=== PATIENT | female | born 1960 | race Caucasian/White ===

== ENCOUNTER 2017-12-23 10:19 | Inpatient (IN) ==
--- NOTE | 2017-12-23 10:31 | History & Physical Report ---
Date of Encounter: 12/23/17 Time of Encounter: 10:31 24 Hour HP Update - Instructions Instructions: If the History and Physical is less than 30 days old and was completed prior to A.M. admission and or procedure and has NOT been updated on calendar day of procedure please complete this update prior to performing procedure. - Update Patient reports changes in Medical Condition: No Changes in examination, assessment, or condition: No Changes in Medication: No Preop tests/diagnostics Reviewed: Yes Surgery Remains Indicated: Yes Consent for Planned Operative Procedure(s) Verified: Yes - Pre-Operative Checklist Preoperative Checklist Indicated: No Prophylactic Antibiotic Ordered: Yes Is VTE Prophylaxis Indicated?: Yes
[2017-12-23] MEDS ORDERED: Albuterol 2.5 MG/3 ML NEBULIZER IH ONE (10:36)
[2017-12-23] MEDS ORDERED: Ringers Solution, Lactated 1,000 ML IVC SCH ×2 (10:45→13:39)
[2017-12-23] MEDS ORDERED: *HR* Ropivacaine/PF 0.5% 20 ML VIAL ONE (10:55)
[2017-12-23] MEDS ORDERED: Acetaminophen IV 1,000 MG/100 ML INFUS..BTL IVPB ONE (10:57)
[2017-12-23] MEDS ORDERED: Clindamycin 900 MG/50 ML 900 MG/50 ML IV.SOLN IVPB ONE (10:59)
[2017-12-23] MEDS ORDERED: *HR* Midazolam HCl 2 MG/2 ML VIAL ONE (10:59)
[2017-12-23] MEDS ORDERED: Dexamethasone 4 MG/ML VIAL ONE (10:59)
[2017-12-23] MEDS ORDERED: *HR* Propofol 200 MG/20 ML VIAL IVP ONE (10:59)
[2017-12-23] MEDS ORDERED: *HR* Succinylcholine 200 MG/10 ML VIAL IVP ONE (10:59)
[2017-12-23] MEDS ORDERED: *HR* FentaNYL (PF) 100 MCG/2 ML VIAL ONE (10:59)
[2017-12-23] MEDS ORDERED: Lidocaine -MPF 4% 5 ML AMPUL ONE (10:59)
--- NOTE | 2017-12-23 11:00 | Anesthesia Evaluation PreOp ---
Date of Encounter: 12/23/17 Time of Encounter: 10:58 - Past History Planned Operation: R TSR reverse Cardiac History: Arrhythmia (paroxysmal afib, now in sinus) Pulmonary History: Smoker (smoked today), COPD EQUAL OPPORTUNITY COUNSELOR History: Denies Any Significant HX Other Medical History: Denies Any Significant HX Anesthesia History: No Prior Anesthetic Complications, Past Anesthesia (R wrist) Alcohol Use: none Drug use: none Medications and Allergies 3 Allergy/AdvReac Type Severity Reaction Status Date / Time Penicillins Allergy See Verified 12/16/17 11:32 Comments - Meds/Allergy Pre-op Review Medications Reviewed: Yes Allergies Reviewed: Yes Beta Blockers on Current Med List: No Anesthesia Results - Labs Laboratory Tests 12/16/17 12/16/17 12/16/17 11:42 11:42 11:42 WBC 8.4 Hgb 14.3 Hct 44.3 Plt Count 300 PT 11.3 INR 1.1 APTT 32.7 Sodium 136 Potassium 4.4 Chloride 108 H Carbon Dioxide 24 BUN 17 Creatinine 0.63 - Imaging EKG: report reviewed Anesthesia Exam O2 Sat Height 1.52 m Height 1.52 m Height 1.52 m Weight 51.256 kg Weight 51.256 kg Weight 51.256 kg O2 Sat by Pulse Oximetry 94 Vital Signs Temp Pulse Resp BP Pulse Ox 98.0 F 75 18 110/74 94 12/23/17 10:40 12/23/17 10:40 12/23/17 10:40 12/23/17 10:40 12/23/17 10:40 Height: 1.52m Weight: 51kg NPO (# of Hours): >8 - HEENT Pupil (Motor): Pupils equal, EOMI Mallampati: II (prominent incisors) Teeth: Poor dentition Oral Opening: Greater than 3 - EQUAL OPPORTUNITY COUNSELOR LOC: Oriented EQUAL OPPORTUNITY COUNSELOR Motor: Normal RUE, Normal LUE, Normal RLE, Normal LLE, Normal Face EQUAL OPPORTUNITY COUNSELOR Sensory: Normal: RUE, LUE, RLE, LLE, Face - Cardiac Rhythm: Regular - Pulmonary Breath Sounds: bilateral Clear Respiratory Effort: Symmetrical Anesthesia Assess/Plan ASA Score: 3 Modified [place] Scale for Level of Consciousness: Cooperative, oriented, and tranquil Anesthetic Plan: General, Regional (R supraclavicular nn block) Monitoring Plan: Standard Monitors Recovery Plan: PACU
--- NOTE | 2017-12-23 11:35 | Discharge Summary ---
Date of Encounter: 12/24/17 Time of Encounter: 07:48 - Discharge Diagnosis (1) Paroxysmal atrial fibrillation Priority: Secondary Status: Chronic (2) COPD (chronic obstructive pulmonary disease) Priority: Secondary Status: Chronic Qualifiers: COPD type: unspecified COPD Qualified Code(s): J44.9 - Chronic obstructive pulmonary disease, unspecified (3) Tobacco dependence Priority: Secondary Status: Chronic (4) Rotator cuff tear arthropathy of right shoulder Priority: Primary Status: Chronic (5) Status post reverse total arthroplasty of right shoulder Priority: Primary Status: Acute - Discharge Medications Home Medications: ALPRAZolam [Xanax 0.5 MG Tablet] 0.5 mg PO TID PRN 12/23/17 [History] Albuterol Sulfate [Albuterol Inhaler] 2 puff IH Q4-6H PRN 12/23/17 [History] Aspirin [Lo-Dose Aspirin EC] 81 mg PO DAILY 12/23/17 [History] Flecainide 100 - 200 mg PO DAILY PRN 12/23/17 [History] Guaifenesin [Mucus Relief] 400 mg PO Q4H PRN 12/23/17 [History] Ibuprofen [Motrin] 600 mg PO BID PRN 12/23/17 [History] OxyCODONE Immed Rel [Roxicodone 5 MG] 5 mg PO Q4HR PRN 5 Days #20 tablet [Rx] PARoxetine HCl [Paroxetine HCl] 20 mg PO DAILY 12/23/17 [History] Tiotropium [Spiriva] 18 mcg IH DAILY 12/23/17 [History] dilTIAZem HCl [Diltiazem 24Hr Cd] 120 mg PO DAILY 12/23/17 [History] Allergies/Adverse Reactions: 3 Allergy/AdvReac Type Severity Reaction Status Date / Time Penicillins AdvReac See Verified 12/23/17 11:09 Comments Primary care physician: Jb Rios MD - Patient Status Disposition: Home, Self-Care Condition: Good Functional capacity at discharge: independent ambulation Overall status at discharge: patient is progressing back to baseline - Discharge Instructions Follow Up With: Jb Rios MD [Primary Care Provider] - Additional Instructions: Discharge Instructions: Total Shoulder Please call [facility] ([phone]), your Primary Care Physician, or report to the Emergency Room if you have any of the following symptoms: Nausea, vomiting, fever greater that 101.5, swelling, chest pain, shortness of breath, increased pain/redness/drainage/odor for your incision site, numbness/ tingling, or any other concerning symptoms. ACTIVITY: Always keep your arm in the sling. Do not raise your arm away from your body. Do not use your arm to help with getting in or out of bed. No weight bearing permitted. Only perform those exercises given to you by your therapist. MEDICATIONS: Upon discharge resume your home medications. Take all the medications as prescribed. Take a stool softener if taking narcotic pain medications. Stool softeners are only effective if you drink enough fluids. Drink 6-8 glass of water or fluids a day, unless this is not allowed for another health problem. Despite using stool softeners, if you haven't had a bowel movement in 3 days, please switch to a gentle laxative. Gentle laxatives are sold over the counter. You should have a bowel movement within 24 hours, if not call the office. You will be discharged from the hospital with a prescription for pain medication. You are encouraged to decrease the use of narcotic pain medication as tolerated. Should you require a refill, please call the office. [facility] prescribes narcotic pain medication for only 4-6 weeks after surgery. If you require pain medication beyond this time period, you may be referred to your Primary Care Physician or to the Pain Clinic for further evaluation. Plan ahead for refills on pain medication as many narcotics either need to be picked up at the office or mailed. It is best to call 48-72 hours in advance of needing a prescription refill so you don't run out of medication. To help control the post-operative pain, you may take NSAIDs (Aleve,Advil, Motrin, Ibuprofen, Naprosyn) or Tylenol as prescribed on the bottle in addition to the pain medication. WOUND CARE: Leave the dressing on for 7-10 days. You may change the dressing if it becomes saturated greater than 50%. Do not get the dressing wet at anytime. Wash your hands with antibacterial soap, rinse and dry prior to any wound care. If you have slava the visiting nurse or rehab facility can remove the stapes 10-14 days after surgery and place steri-strips across the wound. Leave the steri-strips in place until they fall off on their own. You may let water from the shower run on top of the steri-strips. If you do not have a visiting nurse or rehab facility, you will need to return to the office at 10-14 days for the slava to be removed. If you have itching or redness around the dressing call the office. FOLLOW-UP: Please follow up with your surgeon in the orthopedic clinic, as scheduled - Hospital Course Hospital course: Ms. Arthur is a 57 year old female Status post right total shoulder replacement discharged home same day - Time Spent with Patient Total time spent providing and/or coordinating discharge services:
[2017-12-23] MEDS ORDERED: *HR* PHENYLEPHRINE 1,000 MCG/10 ML SYRINGE IVP ONE (11:53)
[2017-12-23] MEDS ORDERED: *HR* OxyCODONE Immed Rel 5 MG TABLET PO PRN ×3 (12:31→13:39)
[2017-12-23] MEDS ORDERED: Ondansetron 4 MG/2 ML VIAL IVP PRN ×2 (12:31→13:39)
--- NOTE | 2017-12-23 12:58 | Orthopedic Operative Note ---
Date of procedure: 12/23/17 Pre-op diagnosis: Right shoulder cuff tear arthropathy Post-op diagnosis: same Procedure: Procedure: Total Shoulder Replacment Reverse, right Estimated blood loss: 100 cc Hardware: Metal and polyethylene replacement: Arthrex small glenoid baseplate, 2 4.5 screws. 1 6.5 screw, 36 central glenosphere, 5 humeral stem, poly insert 3 Exam Under anesthesia: Full motion and no stability Procedural Notes: Irreparable tear supra infra and subscap Operative procedure: The patient was brought to the operating room and placed on the operating room table. After general anesthesia was administered the operative shoulder was examined. Findings were noted. The patient was placed in the modified beachchair position. All pressure points were padded appropriately. And the head was stabilized in the neutral position. The operative extremity was prepped and draped in the sterile surgical fashion. The patient received IV antibiotics prior to skin incision. A standard deltopectoral approach was made to the operative shoulder. Incision was made to the skin and subcutaneous tissue,hemo stasis was obtained with Bovie cautery. Using careful blunt dissection the cephalic vein was identified and mobilized medially. The deltopectoral interval was developed and the clavipectoral fascia was incised. Patient noted to have irreparable tear of subscap. The humerus was dislocated patient noted to have irreparable tear supraspinatus tendon and infraspinatus, and the humeral cut was made along the anatomic neck. Anterior and posterior Bankart retractors were placed to expose the glenoid. The glenoid guide was seated and the centering hole was made. It was reamed with the appropriate reamer. The small baseplate was seated and secured with (2) 4.5 screws and one 6.5 screw. The baseplate was irrigated and dried and the 36 central Glenosphere was seated and secured with the Stephens taper. The Stephens taper was tested and found to be secure the humerus was redislocated and prepared with the diaphyseal reamers, followed by a broaching process up to the appropriate size 5 in the patient's anatomic version. The metaphyseal reamer was then utilized. Trial reduction found the shoulder to be relocatable. Trial components were removed The appropriate 5 stem was impacted in place in the patient's anatomic version. Trial reduction found the shoulder to be relocatable and stable with the appropriate 3. Trial component was removed and the real 3 poly was seated and secured the shoulder was reduced. The shoulder had excellent motion and excellent stability and no evidence of dislocation. The deep tissue was irrigated with pulse irrigation. The deltopectoral interval was closed with a running #1 PDS suture, subcutaneous tissue was irrigated and closed with 0 PDS suture, the skin was closed with Dermabond. The patient was placed in a sterile dressing, abduction brace and extubated. The patient was then transferred to the recovery room in stable condition. Anesthesia: GETA Surgeon: Lorenzo Jose Was there an surgeon's assistant present: No Estimated blood loss (cc): 100 Condition: stable Disposition: PACU
--- NOTE | 2017-12-23 13:10 | Anesthesia Evaluation Post Op ---
Date of Encounter: 12/23/17 Time of Encounter: 13:12 - Vital Signs Vital Signs: Vital Signs - Last 8 Hours Temp Pulse Resp BP Pulse Ox 12/23/17 13:03 70 16 106/67 97 12/23/17 12:53 74 16 123/65 97 12/23/17 12:43 97.0 F L 72 14 132/62 97 12/23/17 11:25 74 18 111/63 93 12/23/17 11:11 71 18 117/70 92 12/23/17 10:40 98.0 F 75 18 110/74 94 Intake and Output 12/22/17 12/23/17 12/23/17 23:59 07:59 15:59 Intake Total 50 / 50 Output Total 100 / 100 Balance -50 / -50 Intake: IV Fluids 50 / 50 Cleocin Premix 900 MG/50 ML 900 50 / 50 mg In 50 ml @ 100 mls/hr IVPB PREOP ONE Rx#:[id number] Output: Estimated Blood Loss 100 / 100 Other: Weight 51.256 kg Patient Weight 12/23/17 23:59 Weight 51.256 kg - Lungs Lungs: Clear Ascult./Percussion - Airway Airway: Non-obstructed - Cardiovascular Regular Rate, Baseline Rhythm - Mental Status Mental Status: Alert & Oriented, Answers Appropriately - Pain Pain Scale: 0 Pain Scale used: Numeric (1 - 10) - Nausea Vomiting Nausea Vomiting: Not Present - Hydration Hydration: Tolerates oral liquids, Ice chips - Discharge PostOp Status: Transfer Patient to floor
[2017-12-23 13:37] LABS: Hematocrit 39.2 % (35.3-44.9)
[2017-12-23] MEDS ORDERED: Ibuprofen 600 MG TABLET PO PRN (13:39)
[2017-12-23] MEDS ORDERED: Sennosides 8.6 MG TABLET PO PRN (13:39)
[2017-12-23] MEDS ORDERED: Naloxone 0.4 MG/ML INJ IVP PRN (13:39)
[2017-12-23] MEDS ORDERED: Temazepam 15 MG CAPSULE PO PRN (13:39)
[2017-12-23] MEDS ORDERED: GuaiFENesin Liq 200 MG/10 ML UDC PO PRN (13:39)
[2017-12-23] MEDS ORDERED: MOM Conc 10 ML UD.LIQ PO PRN (13:39)
[2017-12-23] MEDS ORDERED: ALPRAZolam 0.5 MG TABLET PO PRN (13:39)
[2017-12-23] MEDS ORDERED: Clindamycin 900 MG/50 ML 900 MG/50 ML IV.SOLN IVPB SCH (16:00)
[2017-12-23 16:51] VITALS: BP 129/77
[2017-12-23] MEDS ORDERED: *HR* Enoxaparin 30 MG/0.3 ML SYRINGE SQ SCH ×2 (18:00)
[2017-12-24] MEDS ORDERED: Diltiazem CD (24hr) 120 MG CAPSULE PO SCH (09:00)
[2017-12-24] MEDS ORDERED: Tiotropium 18 MCG inhalation IH SCH (09:00)
[2017-12-24] MEDS ORDERED: Aspirin Enteric Coated 81 MG Tablet PO SCH (09:00)
== END 2017-12-23 17:10 | disposition home or self-care (01) | DRG 315 ==
LOC: SAMDAY 10:19 → 3NENU 13:31
PROVIDERS: ADMIT Orthopaedic Surgery; ATTEND Orthopaedic Surgery

== ENCOUNTER 2018-08-07 08:03 | Inpatient (IN) ==
--- NOTE | 2018-08-06 20:40 | Discharge Summary ---
<Lorenzo Jose - Last Filed: 08/07/18 08:55> Orders not resulted at time of discharge: Pending orders 08/07/18 00:01 XR shoulder complete LT [XR] Routine H/H [Hemoglobin and Hematocrit] [HEME] Routine 08/07/18 08:07 US anesthesia pain block [US] Routine Date of Encounter: 08/07/18 - Discharge Diagnosis (1) Rotator cuff arthropathy of left shoulder Priority: Primary Status: Chronic (2) Status post reverse total arthroplasty of left shoulder Priority: Primary Status: Acute (3) Status post reverse total arthroplasty of right shoulder Priority: Secondary Status: Chronic (4) Paroxysmal atrial fibrillation Priority: Secondary Status: Chronic (5) Tobacco dependence Priority: Secondary Status: Chronic - Hospital Course Hospital course: Ms. Arthur is a 58 year old female - Time Spent with Patient Total time spent providing and/or coordinating discharge services: - Discharge Medications Home Medications: ALPRAZolam [Xanax 0.5 MG Tablet] 0.5 mg PO TID PRN 12/23/17 [History] Albuterol Sulfate [Albuterol Inhaler] 2 puff IH Q4-6H PRN 12/23/17 [History] Aspirin [Lo-Dose Aspirin EC] 81 mg PO DAILY 12/23/17 [History] Flecainide 100 - 200 mg PO DAILY PRN 12/23/17 [History] Guaifenesin [Mucus Relief] 400 mg PO Q4H PRN 12/23/17 [History] Ibuprofen [Motrin] 600 mg PO BID PRN 12/23/17 [History] PARoxetine HCl [Paroxetine HCl] 20 mg PO DAILY 12/23/17 [History] Tiotropium [Spiriva] 1 puff IH DAILY 12/23/17 [History] dilTIAZem HCl [Diltiazem 24Hr Cd] 120 mg PO DAILY 12/23/17 [History] OxyCODONE Immed Rel [Roxicodone 5 MG] 5 mg PO Q6HR PRN 7 Days #28 tablet [Rx] Albuterol Neb [Proventil Neb] 2.5 mg IH TID PRN 08/07/18 [History] Allergies/Adverse Reactions: 3 Allergy/AdvReac Type Severity Reaction Status Date / Time Penicillins AdvReac See Verified 08/07/18 08:37 Comments Primary care physician: Jb Rios MD - Patient Status Disposition: Home, Self-Care Condition: Good - Discharge Instructions Follow Up With: Rukhsana Solis, PAC [Physician Solar Sales Consultant] - 08/17/18 10:15 am Additional Instructions: Discharge Instructions: Total Shoulder Please call [facility] ([phone]), your Primary Care Physician, or report to the Emergency Room if you have any of the following symptoms: Nausea, vomiting, fever greater that 101.5, swelling, chest pain, shortness of breath, increased pain/redness/drainage/odor for your incision site, numbness/ tingling, or any other concerning symptoms. ACTIVITY: Always keep your arm in the sling. Do not raise your arm away from your body. Do not use your arm to help with getting in or out of bed. No weight bearing permitted. Only perform those exercises given to you by your therapist. Incentive Spirometer 10 times an hour. MEDICATIONS: Upon discharge resume your home medications. Take all the medications as prescribed. Take a stool softener if taking narcotic pain medications. Stool softeners are only effective if you drink enough fluids. Drink 6-8 glass of water or fluids a day, unless this is not allowed for another health problem. Despite using stool softeners, if you haven't had a bowel movement in 3 days, please switch to a gentle laxative. Gentle laxatives are sold over the counter. You should have a bowel movement within 24 hours, if not call the office. You will be discharged from the hospital with a prescription for pain medication. You are encouraged to decrease the use of narcotic pain medication as tolerated. Should you require a refill, please call the office. [facility] prescribes narcotic pain medication for only 4-6 weeks after surgery. If you require pain medication beyond this time period, you may be referred to your Primary Care Physician or to the Pain Clinic for further evaluation. Plan ahead for refills on pain medication as many narcotics either need to be picked up at the office or mailed. It is best to call 48-72 hours in advance of needing a prescription refill so you don't run out of medication. To help control the post-operative pain, you may take NSAIDs (Aleve,Advil, Motrin, Ibuprofen, Naprosyn) or Tylenol as prescribed on the bottle in addition to the pain medication. WOUND CARE: Leave the dressing on for 7-10 days. You may change the dressing if it becomes saturated greater than 50%. Do not get the dressing wet at anytime. Wash your hands with antibacterial soap, rinse and dry prior to any wound care. If you have slava the visiting nurse or rehab facility can remove the stapes 10-14 days after surgery and place steri-strips across the wound. Leave the steri-strips in place until they fall off on their own. You may let water from the shower run on top of the steri-strips. If you do not have a visiting nurse or rehab facility, you will need to return to the office at 10-14 days for the slava to be removed. If you have itching or redness around the dressing call the office. FOLLOW-UP: Please follow up with your surgeon in the orthopedic clinic, as scheduled <Rukhsana Solis - Last Filed: 08/08/18 11:27> Date of Encounter: 08/07/18 Time of Encounter: 11:24 - Discharge Diagnosis (1) Status post reverse total arthroplasty of left shoulder Priority: Primary Status: Acute (2) Rotator cuff arthropathy of left shoulder Priority: Primary Status: Chronic (3) COPD (chronic obstructive pulmonary disease) Priority: Secondary Status: Chronic Qualifiers: COPD type: unspecified COPD Qualified Code(s): J44.9 - Chronic obstructive pulmonary disease, unspecified (4) Paroxysmal atrial fibrillation Priority: Secondary Status: Chronic (5) Tobacco dependence Priority: Secondary Status: Chronic - Hospital Course Hospital course: Ms. Arthur is a 58 year old female, status post Left TSR-reverse. Patient had uneventful postoperative course. Stable for discharge. Afebrile, vital signs stable. Vital Signs (72 hours) 08/07/18 08:19 08/07/18 08:35 08/07/18 09:14 Temperature 98.1 F Pulse Rate 80 73 Respiratory Rate 18 18 18 Blood Pressure 125/73 110/71 O2 Sat by Pulse Oximetry 93 93 93 08/07/18 09:24 08/07/18 09:34 08/07/18 09:44 Temperature Pulse Rate 68 77 72 Respiratory Rate 16 16 16 Blood Pressure 123/81 131/75 126/76 O2 Sat by Pulse Oximetry 95 94 94 08/07/18 11:03 10/08/18 11:13 08/07/18 11:23 Temperature 97.3 F L Pulse Rate 79 68 74 Respiratory Rate 18 17 18 Blood Pressure 182/93 150/89 148/93 O2 Sat by Pulse Oximetry 95 97 98 08/07/18 11:33 08/07/18 11:43 08/07/18 11:59 Temperature 97.4 F L 97.4 F L 96 F L Pulse Rate 71 71 73 Respiratory Rate 19 16 16 Blood Pressure 133/73 123/75 122/72 O2 Sat by Pulse Oximetry 98 98 100 08/07/18 12:15 08/07/18 12:35 08/07/18 14:11 Temperature 95 F L 97.4 F L Pulse Rate 72 65 Respiratory Rate 18 16 Blood Pressure 122/73 116/70 O2 Sat by Pulse Oximetry 99 97 95 08/07/18 15:20 Temperature 97.5 F L Pulse Rate 65 Respiratory Rate 18 Blood Pressure 112/69 O2 Sat by Pulse Oximetry 94 Labs reviewed. H/H - stable, asymptomatic Pain control: adequate Participating in PT. All questions and concerns addressed. Educated on use of incentive spirometer. Encouraged ambulation and proper hydration. Patient educated on post-operative restrictions and post-operative care. Assessment and plan: Continue with postoperative care Discharge plan: Home , discharge today with OP. - Time Spent with Patient Total time spent providing and/or coordinating discharge services: Date of admission: 08/07 Primary care physician: Jb Rios MD Discharging clinician: Rukhsana Solis Anticipated date of discharge: 08/07/18 - Patient Status Functional capacity at discharge: independent ambulation Overall status at discharge: patient is progressing back to baseline
[2018-08-07] MEDS ORDERED: Acetaminophen IV 1,000 MG/100 ML INFUS..BTL IVPB ONE (08:06)
[2018-08-07] MEDS ORDERED: Famotidine 20 MG/2 ML VIAL IVP ONE (08:06)
[2018-08-07] MEDS ORDERED: Pregabalin 75 MG CAPSULE PO ONE (08:06)
[2018-08-07] MEDS ORDERED: Celecoxib 100 MG CAPSULE PO ONE (08:07)
[2018-08-07] MEDS ORDERED: Dexamethasone 4 MG/ML VIAL ONE (08:07)
[2018-08-07] MEDS ORDERED: Ondansetron 4 MG/2 ML VIAL ONE (08:07)
[2018-08-07] MEDS ORDERED: *HR* Midazolam HCl 2 MG/2 ML VIAL ONE (08:07)
[2018-08-07] MEDS ORDERED: *HR* Propofol 200 MG/20 ML VIAL IVP ONE (08:07)
[2018-08-07] MEDS ORDERED: *HR* FentaNYL (PF) 100 MCG/2 ML VIAL ONE (08:07)
[2018-08-07] MEDS ORDERED: Lidocaine -MPF 2% 2 ML VIAL ONE (08:13)
[2018-08-07] MEDS ORDERED: Clindamycin 900 MG/50 ML 900 MG/50 ML IV.SOLN IVPB ONE (08:16)
[2018-08-07] MEDS ORDERED: Albuterol 2.5 MG/3 ML NEBULIZER IH ONE (08:16)
[2018-08-07] MEDS: Ringers Solution, Lactated 1,000 ML IVC SCH ×2 (08:26→11:40)
--- NOTE | 2018-08-07 08:46 | History & Physical Report ---
Date of Encounter: 08/07/18 Time of Encounter: 08:45 24 Hour HP Update - Instructions Instructions: If the History and Physical is less than 30 days old and was completed prior to A.M. admission and or procedure and has NOT been updated on calendar day of procedure please complete this update prior to performing procedure. - Update Patient reports changes in Medical Condition: No Changes in examination, assessment, or condition: No Changes in Medication: No Preop tests/diagnostics Reviewed: Yes Surgery Remains Indicated: Yes Consent for Planned Operative Procedure(s) Verified: Yes - Pre-Operative Checklist Preoperative Checklist Indicated: No Prophylactic Antibiotic Ordered: Yes Is VTE Prophylaxis Indicated?: Yes
[2018-08-07] MEDS ORDERED: *HR* Promethazine 25 MG/ML VIAL IVP PRN (08:47)
[2018-08-07] MEDS ORDERED: *HR* HYDROmorphone (PF) 1 MG/ML SYRINGE IVP PRN (08:47)
[2018-08-07] MEDS ORDERED: *HR* Labetalol 20 MG/4 ML SYRINGE IVP PRN (08:47)
--- NOTE | 2018-08-07 08:56 | Anesthesia Evaluation PreOp ---
Date of Encounter: 08/07/18 Time of Encounter: 08:55 - Past History Planned Operation: Left Total Shoulder Cardiac History: HTN, Hyperlipidemia, Arrhythmia (Paroxysmal AFib on Cartia) Pulmonary History: Smoker, COPD RN LONG TERM CARE History: Denies Any Significant HX Other Medical History: Denies Any Significant HX Anesthesia History: No Prior Anesthetic Complications : No Alcohol Use: none Drug use: none Medications and Allergies ALPRAZolam [Xanax 0.5 MG Tablet] 0.5 mg PO TID PRN 12/23/17 [History] Albuterol Sulfate [Albuterol Inhaler] 2 puff IH Q4-6H PRN 12/23/17 [History] Aspirin [Lo-Dose Aspirin EC] 81 mg PO DAILY 12/23/17 [History] Flecainide 100 - 200 mg PO DAILY PRN 12/23/17 [History] Guaifenesin [Mucus Relief] 400 mg PO Q4H PRN 12/23/17 [History] Ibuprofen [Motrin] 600 mg PO BID PRN 12/23/17 [History] PARoxetine HCl [Paroxetine HCl] 20 mg PO DAILY 12/23/17 [History] Tiotropium [Spiriva] 1 puff IH DAILY 12/23/17 [History] dilTIAZem HCl [Diltiazem 24Hr Cd] 120 mg PO DAILY 12/23/17 [History] OxyCODONE Immed Rel [Roxicodone 5 MG] 5 mg PO Q6HR PRN 7 Days #28 tablet [Rx] Albuterol Neb [Proventil Neb] 2.5 mg IH TID PRN 08/07/18 [History] 3 Allergy/AdvReac Type Severity Reaction Status Date / Time Penicillins AdvReac See Verified 08/07/18 08:37 Comments - Meds/Allergy Pre-op Review Medications Reviewed: Yes Allergies Reviewed: Yes Beta Blockers on Current Med List: No Anesthesia Results - Labs Laboratory Tests 07/31/18 07/31/18 10:40 10:40 Hgb 13.9 Hct 42.9 Plt Count 297 Sodium 135 L Potassium 4.5 BUN 16 Creatinine 0.70 - Imaging EKG: report reviewed (SR) Anesthesia Exam O2 Sat Height 1.5 m Height 1.5 m Height 1.5 m Height 1.5 m Weight 51.256 kg Weight 51.256 kg Weight 51.256 kg Weight 51.256 kg O2 Sat by Pulse Oximetry 93 O2 Sat by Pulse Oximetry 93 Vital Signs Temp Pulse Resp BP Pulse Ox 98.1 F 80 18 125/73 93 08/07/18 08:19 08/07/18 08:19 08/07/18 08:19 08/07/18 08:19 08/07/18 08:19 Height: 4'11 Weight: 113 lbs NPO (# of Hours): [place] Pain Scale: 0 - HEENT Pupil (Motor): Pupils equal, EOMI Mallampati: III Oral Opening: Less than or equal to 3 - RN LONG TERM CARE LOC: Oriented RN LONG TERM CARE Motor: Normal RUE, Normal LUE, Normal RLE, Normal LLE, Normal Face RN LONG TERM CARE Sensory: Normal: RUE, LUE, RLE, LLE, Face - Cardiac Rhythm: Regular Murmur: None JVD: No Carotid Bruit: No - Pulmonary Breath Sounds: bilateral Clear Respiratory Effort: Symmetrical Anesthesia Assess/Plan ASA Score: 3 (Arrhythmia COPD) Modified [place] Scale for Level of Consciousness: Cooperative, oriented, and tranquil Anesthetic Plan: General, Regional Monitoring Plan: Standard Monitors Recovery Plan: PACU (Discussed GA and RA, agrees to proceed)
[2018-08-07] MEDS ORDERED: Tetracaine/PF 20 MG/2 ML AMPUL ONE (09:01)
[2018-08-07] MEDS ORDERED: ROPIVACAINE HCL/PF 0.5% 30 ML VIAL ONE (09:01)
--- NOTE | 2018-08-07 09:33 | Anesthesia Procedures ---
Date of Encounter: 08/07/18 Time of Encounter: 08:55 Procedures: Anesthesia - Nerve Block Procedure Date: 08/07/18 Time: 09:30 Pre-op Diagnosis: Left Shoulder Arthropathy Surgical Procedure: Left Total Shoulder Checklist: Correct Patient Identifier Correct side: Left Blood Thinner: No Monitor Applied: EKG, BP, Pulse Oximetry Supplemental Oxygen via Nasal Cannula (L/min): 2 Sedation: Versed (mg): 2 Sedation: Fentanyl (mcg): 100 Indication: Post Op Analgesia Pre-op Neuro Deficits: No Block Type: Supraclavicular, Other (SCPB) Catheter placed: No Depth at skin (cm): 3 Sterile Technique: Yes Ultrasound used: Yes Anatomy identified: Yes Visual spread of Local: Yes Neuro Stimulation: No Blood on Needle Aspiration: No Smooth Injection of Local: Yes Pain with Injection of Local: No Prep: Chlorhexadine Needle: 22 x 50 mm Stimuplex Local: Tetracaine (20), Ropivacaine (0.5%), Other (Dexamethasone) Volume (cc): 30 Number of Attempts: 1 Complications: None/effective block Vitals: Vital Signs/O2 Sat/Glucose, Most Current Temp Pulse Resp BP Pulse Ox 08/07/18 09:24 68 16 123/81 95 08/07/18 09:14 73 18 110/71 93 08/07/18 08:35 18 93 08/07/18 08:19 98.1 F 80 18 125/73 93
[2018-08-07] MEDS ORDERED: *HR* PHENYLEPHRINE 1,000 MCG/10 ML SYRINGE IVP ONE (10:11)
[2018-08-07] MEDS ORDERED: EPHEDrine 50 MG/ML VIAL ONE (10:19)
--- NOTE | 2018-08-07 10:47 | Orthopedic Operative Note ---
Date of procedure: 08/07/18 Pre-op diagnosis: Left shoulder cuff tear arthropathy Post-op diagnosis: same Procedure: Procedure: Total Shoulder Replacment Reverse, left Estimated blood loss: 50 cc Hardware: Metal and polyethylene replacement: Arthrex 24, +2 , 25 mm screw glenoid baseplate, 2 4.5 screws. 2 5.5 screw, 36+4 glenosphere, 9 apex humeral stem, poly insert 3 Exam Under anesthesia: Full motion no instability Procedural Notes: Irreparable tear supraspinatus tendon. Operative procedure: The patient was brought to the operating room and placed on the operating room table. After general anesthesia was administered the operative shoulder was examined. Findings were noted. The patient was placed in the modified beachchair position. All pressure points were padded appropriately. And the head was stabilized in the neutral position. The operative extremity was prepped and draped in the sterile surgical fashion. The patient received IV antibiotics prior to skin incision. A standard deltopectoral approach was made to the operative shoulder. Incision was made to the skin and subcutaneous tissue,hemo stasis was obtained with Bovie cautery. Using careful blunt dissection the cephalic vein was identified and mobilized medially. The deltopectoral interval was developed and the clavipectoral fascia was incised. The subscap was released off the lesser tuberosity and tagged with #2 FiberWire suture subscap was irreparable. The humerus was dislocated patient noted to have irreparable tear supraspinatus tendon, and the humeral cut was made along the anatomic neck. Anterior and posterior Bankart retractors were placed to expose the glenoid. The glenoid guide was seated and the centering hole was made. It was reamed with the appropriate reamer. The 24, +2, 25 mm screw baseplate was seated and secured with (2) 4.5 screws and 2 5.5 screw. The baseplate was irrigated and dried and the 39+4 Glenosphere was seated and secured with the Stephens taper. The Stephens taper was tested and found to be secure the humerus was redislocated and prepared with the diaphyseal reamers, followed by a broaching process up to the appropriate size 9 apex in the patient 's anatomic version. The metaphyseal reamer was then utilized. Trial reduction found the shoulder to be relocatable. Trial components were removed and 9 apex stem was impacted in place in the patient's anatomic version. Trial reduction found the shoulder to be relocatable and stable with the appropriate 3 Trial component was removed and the real implant was seated and secured the shoulder was reduced. The shoulder had excellent motion and excellent stability and no evidence of dislocation. The deep tissue was irrigated with pulse irrigation. The PA close the shoulder. The deltopectoral interval was closed with a running #1 PDS suture, subcutaneous tissue was irrigated and closed with 0 PDS suture, the skin was closed with Dermabond. The patient was placed in a sterile dressing, abduction brace and extubated. The patient was then transferred to the recovery room in stable condition. Anesthesia: GETA Surgeon: Lorenzo Jose Was there an lead dental assistant present: No Estimated blood loss (cc): 50 Condition: stable Disposition: PACU
--- NOTE | 2018-08-07 11:51 | Anesthesia Evaluation Post Op ---
Date of Encounter: 08/07/18 Time of Encounter: 11:50 - Vital Signs Vital Signs: Vital Signs/O2 Sat/Glucose, Most Current Temp Pulse Resp BP Pulse Ox 08/07/18 11:43 97.4 F L 71 16 123/75 98 08/07/18 11:33 97.4 F L 71 19 133/73 98 08/07/18 11:23 74 18 148/93 98 08/07/18 11:13 68 17 150/89 97 08/07/18 11:03 97.3 F L 79 18 182/93 95 08/07/18 09:44 72 16 126/76 94 08/07/18 09:34 77 16 131/75 94 08/07/18 09:24 68 16 123/81 95 08/07/18 09:14 73 18 110/71 93 08/07/18 08:35 18 93 08/07/18 08:19 98.1 F 80 18 125/73 93 - Lungs Lungs: Clear Ascult./Percussion - Airway Airway: Non-obstructed - Cardiovascular Regular Rate - Mental Status Mental Status: Alert & Oriented, Answers Appropriately - Pain Pain Scale: 0 - Nausea Vomiting Nausea Vomiting: Not Present - Hydration Hydration: Tolerates oral liquids - Discharge PostOp Status: Transfer Patient to floor
[2018-08-07 12:05] LABS: Hematocrit 39.3 % (35.3-44.9); Hemoglobin 12.7 g/dL (11.5-15.4)
[2018-08-07] MEDS ORDERED: Ondansetron 4 MG/2 ML VIAL IVP PRN (12:19)
[2018-08-07] MEDS ORDERED: Albuterol 2.5 MG/3 ML NEBULIZER IH PRN (12:19)
[2018-08-07] MEDS ORDERED: Naloxone 0.4 MG/ML INJ IVP PRN (12:19)
[2018-08-07] MEDS ORDERED: Ringers Solution, Lactated 1,000 ML IVC SCH (12:19)
[2018-08-07] MEDS ORDERED: Diltiazem CD (24hr) 120 MG CAPSULE PO SCH (12:19)
[2018-08-07] MEDS ORDERED: ALPRAZolam 0.5 MG TABLET PO PRN (12:19)
[2018-08-07] MEDS ORDERED: traMADol 50 MG TABLET PO PRN (12:19)
[2018-08-07] MEDS ORDERED: MOM Conc 10 ML UD.LIQ PO PRN (12:19)
[2018-08-07] MEDS ORDERED: *HR* OxyCODONE/APAP 5/325 TABLET PO PRN (12:19)
[2018-08-07] MEDS ORDERED: Sennosides 8.6 MG TABLET PO PRN (12:19)
[2018-08-07] MEDS ORDERED: Aspirin Enteric Coated 81 MG Tablet PO SCH (12:19)
[2018-08-07] MEDS ORDERED: Temazepam 15 MG CAPSULE PO PRN (12:19)
[2018-08-07] MEDS ORDERED: *HR* OxyCODONE Immed Rel 5 MG TABLET PO PRN (12:19)
[2018-08-07] MEDS ORDERED: *HR* Enoxaparin 30 MG/0.3 ML SYRINGE SQ SCH ×3 (13:45→18:00)
[2018-08-07] MEDS ORDERED: Clindamycin 900 MG/50 ML 900 MG/50 ML IV.SOLN IVPB SCH ×3 (13:46→16:00)
[2018-08-07] MEDS ORDERED: Tiotropium 18 MCG inhalation IH SCH (14:00)
[2018-08-07 15:24] VITALS: BP 112/69
== END 2018-08-07 15:33 | disposition home or self-care (01) | DRG 315 ==
LOC: SAMDAY 08:03 → 3NENU 11:50
PROVIDERS: ADMIT Orthopaedic Surgery; ATTEND Orthopaedic Surgery